=== PATIENT | male | born 1975 | race Caucasian/White ===

== ENCOUNTER → 2020-02-07 | Outpatient (CLI) | payer OTHER ==
[~2020-02-07] MED LIST: CEPHALEXIN500 M1 PO; CLARITIN10 MG PO; MOTRIN800 MG PO; PERCOCET 325 MG1 TA2 PO; PREDNISONE20 MG PO; ZYRTEC 10MG10 MG PO
== END ==
LOC: ZCOL.LAB 16:56
DX: K61.1 Rectal abscess (principal)

== ENCOUNTER → 2020-03-16 | Outpatient (CLI) | payer OTHER | LOC: ZCOL.LAB 16:10 | DX: K61.0 Anal abscess (principal) ==